=== PATIENT | female | born 1930 | race Caucasian/White ===

== ENCOUNTER 2017-12-14 12:26 | Emergency (ER) | payer OTHER ==
[~2017-12-14] VITALS: Ht 172.7 cm; Wt 84.8 kg
[~2017-12-14 12:26] MED LIST: AMLODIPINE BESYL5 MG; ASPIRIN EC81 M1 PO; ATORVASTATIN CA20 MG PO; CALCIUM 500 +1 EAC4 PO; CIPRO500 MG PO; CLONIDINE0.1 PO; FISH OIL 1,0001 EAC5 PO; HYDRALAZINE 2525 MG PO; IMDUR 30 MG TAB30 M1 PO; IRON325 PO; LISINOPRIL5 MG PO; MULTI VITAMIN1 EACH PO; NITROGLYCERIN0.4 MG SUBLING; NORVASC5 MG PO; PLAVIX 75 MG TA75 M1 PO; PRAVASTATIN SOD20 MG PO; PRESERVISION A1 EAC2; PRESERVISION A1 EAC2 PO; TOPROL XL25 MG PO; VITAMIN D1000 UNI1 PO; XANAX 0.5 MG0.5 MG PO
[2017-12-14 12:52] VITALS: BP 159/81
== END 2017-12-14 13:18 | disposition home or self-care (01) ==
LOC: M.ERS 12:26
DX: I10 Essential (primary) hypertension (principal); F41.9 Anxiety disorder, unspecified; I25.10 Atherosclerotic heart disease of native coronary artery without angina pectoris; E78.00 Pure hypercholesterolemia, unspecified; Z90.49 Acquired absence of other specified parts of digestive tract; Z96.659 Presence of unspecified artificial knee joint